=== PATIENT | male | born 1950 | race Caucasian/White ===

== ENCOUNTER → 2018-02-27 | Outpatient (CLI) | payer BC, MEDICARE ==
[~2018-02-27] VITALS: Ht 172.7 cm; Wt 84.1 kg
[~2018-02-27] MED LIST: AMBIEN5 M1 PO
[2018-02-27 13:09] LABS: HEMATOCRIT 34.1 % (42.0-52.0); HEMOGLOBIN 11.4 g/dL (13.5-18.0)
[2018-02-27 14:22] VITALS: BP 147/79
[2018-02-27 16:16] VITALS: BP 127/69
== END ==
LOC: LAB 12:54 → AMSURD 12:54
PROVIDERS: Internal Medicine
DX: D69.6 Thrombocytopenia, unspecified (principal)
CPT/HCPCS: J7040

== ENCOUNTER → 2018-05-14 | Outpatient (CLI) | payer BC, MEDICARE ==
[~2018-05-14] VITALS: Ht 172.7 cm; Wt 84.1 kg
[2018-05-14 14:16] LABS: HEMATOCRIT 37.1 % (42.0-52.0); HEMOGLOBIN 12.2 g/dL (13.5-18.0)
[2018-05-14 15:19] VITALS: BP 136/74
== END ==
LOC: AMSURD 13:52 → LAB 13:52
PROVIDERS: Internal Medicine
DX: D69.6 Thrombocytopenia, unspecified (principal)
CPT/HCPCS: J7040

== ENCOUNTER → 2018-08-20 | Outpatient (CLI) | payer BC, MEDICARE ==
[~2018-08-20] VITALS: Ht 172.7 cm; Wt 84.1 kg
[2018-08-20 13:58] LABS: HEMATOCRIT 36.9 % (42.0-52.0); HEMOGLOBIN 12.4 g/dL (13.5-18.0)
[2018-08-20 14:47] VITALS: BP 153/90
[2018-08-20 15:41] VITALS: BP 142/74
== END ==
LOC: AMSURD 13:48 → LAB 13:48
PROVIDERS: Internal Medicine
DX: D69.6 Thrombocytopenia, unspecified (principal)
CPT/HCPCS: J7040

== ENCOUNTER → 2019-03-01 | Outpatient (CLI) | payer BC, MEDICARE ==
[2018-08-20 15:41] VITALS: BP 142/74
[2019-03-01 12:58] LABS: HEMATOCRIT 32.8 % (42.0-52.0); HEMOGLOBIN 10.6 g/dL (13.5-18.0)
== END ==
LOC: LAB 12:48
PROVIDERS: Internal Medicine
DX: D69.6 Thrombocytopenia, unspecified (principal)

== ENCOUNTER → 2019-05-18 | Outpatient (CLI) | payer BC, MEDICARE ==
[~2019-05-18] VITALS: Ht 172.7 cm; Wt 84.1 kg
[~2019-05-18] MED LIST changes: +COZAAR 50MG50 MG/TAB PO; +SIMVASTATIN10 M1 PO; +ZOLOFT25 M1 PO
[2019-05-18 13:56] VITALS: BP 126/71
[2019-05-18 14:03] LABS: HEMOGLOBIN 11.9 g/dL (13.5-18.0)
[2019-05-18 14:04] LABS: HEMATOCRIT 36.1 % (42.0-52.0)
[2019-05-18 15:45] VITALS: BP 112/63
== END ==
LOC: LAB 13:13
PROVIDERS: Internal Medicine
DX: D69.6 Thrombocytopenia, unspecified (principal)
CPT/HCPCS: J7040

== ENCOUNTER → 2019-08-30 | Outpatient (CLI) | payer BC, MEDICARE ==
[~2019-08-30] VITALS: Ht 172.7 cm; Wt 84.1 kg
[2019-08-30 13:17] LABS: HEMATOCRIT 35.6 % (42.0-52.0); HEMOGLOBIN 11.6 g/dL (13.5-18.0)
[2019-08-30 14:03] VITALS: BP 138/68
[2019-08-30 15:06] VITALS: BP 120/60
== END ==
LOC: AMSURD 13:04 → LAB 13:04
PROVIDERS: Internal Medicine
DX: D69.6 Thrombocytopenia, unspecified (principal)
CPT/HCPCS: J7040

== ENCOUNTER → 2019-11-18 | Outpatient (CLI) | payer BC, MEDICARE ==
[~2019-11-18] VITALS: Ht 172.7 cm; Wt 84.1 kg
[2019-11-18 12:48] LABS: HEMOGLOBIN 10.7 g/dL (13.5-18.0)
[2019-11-18 13:14] VITALS: BP 136/81
[2019-11-18 14:31] VITALS: BP 146/78
== END ==
LOC: AMSURD 12:35 → LAB 12:35
PROVIDERS: Internal Medicine
DX: D69.6 Thrombocytopenia, unspecified (principal)
CPT/HCPCS: J7040

== ENCOUNTER → 2020-02-11 | Outpatient (CLI) | payer BC, MEDICARE ==
[2019-11-18 14:31] VITALS: BP 146/78
[~2020-02-11] MED LIST changes: +AMLODIPINE BESYL5 MG PO; +HYDROCHLOROTH12.5 M2 PO; +LORAZEPAM0.5 M1 PO
[2020-02-11 10:18] LABS: HEMATOCRIT 34.9 % (42.0-52.0); HEMOGLOBIN 11.2 g/dL (13.5-18.0)
== END ==
LOC: LAB 09:59
PROVIDERS: Internal Medicine
DX: D69.6 Thrombocytopenia, unspecified (principal)

== ENCOUNTER → 2020-02-14 | Outpatient (CLI) | payer BC, MEDICARE ==
[~2020-02-14] VITALS: Ht 172.7 cm; Wt 84.1 kg
[2020-02-14 10:14] LABS: HEMATOCRIT 35.3 % (42.0-52.0); HEMOGLOBIN 11.1 g/dL (13.5-18.0)
[2020-02-14 11:00] VITALS: BP 128/71
== END ==
LOC: AMSURD 09:59
PROVIDERS: Internal Medicine
DX: D69.6 Thrombocytopenia, unspecified (principal)
CPT/HCPCS: J7040

== ENCOUNTER 2020-06-21 14:20 | Outpatient (RCR) | payer BC, MEDICARE ==
[2020-05-10 13:45] VITALS: BP 142/78
[2020-06-21 14:28] VITALS: BP 150/71
[2020-06-21 15:44] VITALS: BP 140/81
== END 2020-08-08 | disposition home or self-care (01) ==
LOC: AMSURD
DX: D69.6 Thrombocytopenia, unspecified (principal)
CPT/HCPCS: J7040

== ENCOUNTER → 2020-06-21 | Outpatient (CLI) | payer BC, MEDICARE ==
[2020-05-10 13:45] VITALS: BP 142/78
[2020-06-21 13:57] LABS: HEMATOCRIT 36.1 % (42.0-52.0); HEMOGLOBIN 11.6 g/dL (13.5-18.0); LYMPH# 1.5 (1.50-4.00); MEAN CORPUSCULAR HGB CONC 32 g/dL (33-37); MONO # 0.7 (0.20-0.80); NEU # 6.2 (1.40-6.50); PLATELET COUNT 182 K/mm3 (130-400); RED BLOOD COUNT 5.51 M/mm3 (4.20-5.60); RED CELL DISTRIBUTION WIDTH 17.5 % (11.5-14.5); WHITE BLOOD COUNT 8.5 K/mm3 (4.8-10.8)
[2020-06-21 14:07] LABS: MEAN CELL VOLUME 66 fl (78-100); MEAN CORPUSCULAR HEMOGLOBIN 21 pg (27-31)
== END ==
LOC: LAB 13:46
PROVIDERS: Internal Medicine
DX: D69.6 Thrombocytopenia, unspecified (principal); D56.1 Beta thalassemia

== ENCOUNTER → 2020-08-21 | Outpatient (CLI) | payer BC, MEDICARE | LOC: RAD 14:00 | DX: H93.A3 Pulsatile tinnitus, bilateral (principal) ==

== ENCOUNTER → 2020-09-06 | Outpatient (CLI) | payer BC, MEDICARE | LOC: RAD 14:30 | DX: H93.A3 Pulsatile tinnitus, bilateral (principal) ==

== ENCOUNTER → 2021-02-06 | Outpatient (CLI) | payer BC, MEDICARE | LOC: RAD 07:42 | DX: H93.A3 Pulsatile tinnitus, bilateral (principal) ==

== ENCOUNTER → 2021-02-28 | Outpatient (CLI) | payer BC, MEDICARE ==
[2021-02-28 14:42] LABS: BASO # 0.02 K/mm3 (0.02-0.10); EOS # 0.03 K/mm3 (0.04-0.40); HEMATOCRIT 33.1 % (42.0-52.0); HEMOGLOBIN 10.5 g/dL (13.5-18.0); MEAN CELL VOLUME 69 fl (78-100); MEAN CORPUSCULAR HEMOGLOBIN 22 pg (27-31); MEAN CORPUSCULAR HGB CONC 32 g/dL (33-37); MONO # 0.24 K/mm3 (0.20-0.80); NEU # 1.78 K/mm3 (1.40-6.50); PLATELET COUNT 85 K/mm3 (130-400); RED BLOOD COUNT 4.82 M/mm3 (4.20-5.60); RED CELL DISTRIBUTION WIDTH 16.6 % (11.5-14.5); WHITE BLOOD COUNT 3.1 K/mm3 (4.8-10.8)
== END ==
LOC: LAB 14:31
DX: D61.9 Aplastic anemia, unspecified (principal)

== ENCOUNTER → 2021-05-29 | Outpatient (CLI) | payer BC, MEDICARE ==
[~2021-05-29] VITALS: Ht 167.6 cm; Wt 86.4 kg
[~2021-05-29] MED LIST changes: +MELOXICAM15 MG PO; +METOPROLOL SUCC25 M1 PO; +SIMVASTATIN20 M1 PO
[2021-05-29 10:46] LABS: HEMATOCRIT 34.3 % (42.0-52.0); HEMOGLOBIN 11.2 g/dL (13.5-18.0)
[2021-05-29 12:07] VITALS: BP 125/69
== END ==
LOC: LAB 10:20 → AMSURD 10:20
PROVIDERS: Internal Medicine
DX: D69.6 Thrombocytopenia, unspecified (principal)
CPT/HCPCS: J7040

== ENCOUNTER → 2021-09-04 | Outpatient (CLI) | payer BC, MEDICARE ==
[~2021-09-04] VITALS: Ht 167.6 cm; Wt 86.4 kg
[2021-09-04 13:19] LABS: HEMATOCRIT 34.7 % (42.0-52.0); HEMOGLOBIN 11.4 g/dL (13.5-18.0)
[2021-09-04 14:04] VITALS: BP 126/70
== END ==
LOC: LAB 13:02
PROVIDERS: Internal Medicine
DX: D69.6 Thrombocytopenia, unspecified (principal)
CPT/HCPCS: J7040